=== PATIENT | female | born 1940 | race Caucasian/White ===

== ENCOUNTER 2016-10-14 07:44 | Day surgery (SDC) | payer MEDICARE ==
[2016-10-10 11:06] VITALS: BMI 25.5
[~2016-10-14 07:44] MED LIST: ALPRAZolam 0.25 MG TAB PO PRN; ALPRAZolam 0.5 MG TAB PO PRN; ASPIRIN 325 MG TAB PO STA; ATORVASTATIN 80 MG TAB PO STA; NITROGLYCERIN SL TABS 0.4 MG TAB SUBLINGUAL PRN; SODIUM CHLORIDE 0.9% 1,000 ML in EMPTY BAG 1 BAG IV ONE
[2016-10-14 08:07] VITALS: RESP 16; TEMP 98.2
[2016-10-14] MEDS ORDERED: SODIUM CHLORIDE 0.9% (PF) 10 ML VIAL ONE (09:33)
[2016-10-14] MEDS ORDERED: MIDAZOLAM 2 MG/2 ML VIAL ONE (09:33)
[2016-10-14] MEDS ORDERED: VERAPAMIL 2.5 MG/ML 2 ML AMP ONE (09:33)
[2016-10-14] MEDS ORDERED: LIDOCAINE 2% INJ 20 MG/ML (20 ML MDV) ONE (09:33)
[2016-10-14] MEDS ORDERED: MIDAZOLAM 2 MG/2 ML VIAL IV ONE (09:47)
[2016-10-14] MEDS ORDERED: LIDOCAINE 2% INJ 20 MG/ML SQ ONE (09:48)
[2016-10-14] MEDS: VERAPAMIL SYRINGE (5 MG/10 ML) IV ONE ×2 (09:49→09:58)
[2016-10-14] MEDS ORDERED: HEPARIN SODIUM 1,000 UNIT/ML VIAL ONE (09:50)
[2016-10-14] MEDS ORDERED: HEPARIN SODIUM 1,000 UNIT/ML VIAL IV ONE (09:51)
[2016-10-14] MEDS ORDERED: IOHEXOL 350 MG/ML 100 ML BOTTLE INJ ONE (09:59)
[2016-10-14] MEDS ORDERED: RX INFO: IV CONTRAST WAS GIVEN 1 EACH MISC MISCELLANE PRN (10:06)
[2016-10-14] MEDS ORDERED: SODIUM CHLORIDE 0.9% 1,000 ML IV SCH (10:15)
--- NOTE | 2016-10-14 10:28 | CC ---
DATE OF SERVICE: 10/14/2016 PERFORMING PHYSICIAN: Ryan Briscoe Desk Reporter. PROCEDURE PERFORMED: Selective right and left coronary angiogram. INDICATION: This is a pleasant 76-year-old female patient who was experiencing dyspnea. She underwent myocardial perfusion imaging stress test which showed anterior ischemia. The heart catheterization is to rule out any severe underlying CAD. APPROACH: Right radial artery. COMPLICATIONS: None. LEVEL OF SEDATION: Moderate. PROCEDURE DESCRIPTION: After obtaining informed consent, the patient was brought to the Cardiac [facility] Project [facility]. Her right radial artery was cannulated using micropuncture technique. The micropuncture wire passed easily. Then I placed 6 [place] sheath in the right radial artery. Subsequently, I did give the patient 2 mg of verapamil IA and 3000 units of heparin IV. Subsequently, I did selective right and left coronary angiogram using JR4 and JL 3.5 catheters. The procedure was completed without any complication. SELECTIVE CORONARY ANGIOGRAM: 1. The right coronary artery is a large-caliber vessel and it is a dominant vessel. The RCA in the midportion has mild disease only and distally bifurcates into PDA and PLV branches; both are angiographically normal. 2. The left main is angiographically normal. It bifurcates into the left circumflex and left anterior descending artery. 3. The left circumflex is a large-caliber vessel and it is a nondominant vessel. The left circumflex is angiographically normal and gives rise into 2 obtuse marginal branches; both are angiographically normal. 4. The left anterior descending artery. The proximal LAD appeared to be angiographically normal. The mid LAD by the bifurcation of the first diagonal branch appeared to have a lesion in the range of 30% to 40% only. The first diagonal branch appeared to be angiographically normally. The LAD distally is angiographically normal. CONCLUSION: Mild to moderate nonobstructive coronary artery disease. POSTPROCEDURE MANAGEMENT: 1. Maximize medical treatment. 2. Follow up with the patient.
[2016-10-14 15:18] VITALS: BP 150/72; PULSE 47
== END 2016-10-14 16:05 | disposition home or self-care (01) ==
LOC: CATHCVL 07:44
PROVIDERS: ATTEND Internal Medicine Interventional Cardiology
DX: I25.110 Atherosclerotic heart disease of native coronary artery with unstable angina pectoris (principal); R94.39 Abnormal result of other cardiovascular function study; I10 Essential (primary) hypertension; I48.0 Paroxysmal atrial fibrillation; Z82.49 Family history of ischemic heart disease and other diseases of the circulatory system; Z88.2 Allergy status to sulfonamides; Z87.891 Personal history of nicotine dependence; Z79.899 Other long term (current) drug therapy
CPT/HCPCS: 93454; C1894; J2001; J2250; Q9967; J1644